=== PATIENT | female | born 1995 | race Hispanic/Latino ===

== ENCOUNTER 2017-08-20 17:38 | Emergency (ER) | payer OTHER ==
[~2017-08-20] VITALS: Ht 160 cm; Wt 68.0 kg
[2017-08-20] MEDS ORDERED: NASONEX17 GM (18:03)
[2017-08-20] MEDS ORDERED: XYZAL5 MG PO (18:03)
[2017-08-20] MEDS ORDERED: EYE DROPS ALLER15 ML OP (18:03)
== END 2017-08-20 18:15 | disposition home or self-care (01) ==
LOC: FSED 17:38
DX: H10.023 Other mucopurulent conjunctivitis, bilateral (principal)
CPT/HCPCS: 93005; 99283

== ENCOUNTER 2017-08-22 10:37 | Emergency (ER) | payer OTHER ==
[~2017-08-22 10:37] MED LIST: EYE DROPS ALLER15 ML OP; NASONEX17 GM; XYZAL5 MG PO
--- OUTSIDE RECORDS SUMMARY | 2017-08-22 10:39 | XMS REPORT | Continuity of Care Document ---
Author Author [facility] Organization [facility] Address [address] [place] [address] Phone Unavailable Care Team Providers Care Human Resource Advisor Name Role Phone NONSTAFF PCP Unavailable Insurance Providers Guarantor Carol Quiñonez Address [address] [address] Email [email or web address] Payer [facility] Policy Number [id number] Subscriber's Name QuiñonezCarol degroot Relationship 18 Self / Same As Patient Group Name UNEMPLOYED Advance Directives Directive Response Recorded Date/Time Does the patient have an advance directive? No 08/20/17 6:53pm If yes, is advance directive on file with [facility]? No 08/20/17 6:53pm If not on file with [facility] will patient provide a copy? No 08/20/17 6:53pm Do you have a Directive to Physician? No 08/20/17 6:53pm Do you have a Medical Power of [employer] Gener[employer] Inspector? No 08/20/17 6:53pm Do you have an out of hospital Do Not Resuscitate Order? No 08/20/17 6:53pm Do you have any special needs we should be aware of? No 08/20/17 6:53pm Do you have a support person here with you today? Yes 08/20/17 6:53pm Did patient receive Notice of Privacy Practices? Yes 08/20/17 6:53pm Did patient receive patient rights and responsibilities? Yes 08/20/17 6:53pm Problems No problem information available. Medications Current Home Medications Medication Dose Units Route Directions Days Qty Instructions Start Date Levocetirizine Dihydrochloride (Xyzal) 5 Mg Tablet 5 Mg Oral Daily 30 Tab 08/20/17 Mometasone Furoate (Nasonex) 17 Gm [place] 2 Sprays Nasal Daily 1 Bottle 08/20/17 Tetrahydrozoline Hcl/Zn Sulf (Eye Drops Allergy Relief) 15 Ml Drops 1-2 Drop Ophthalmic Three Times A Day as needed for Itching 1 Bottle *Use as per pkg instructions as dosing may vary 08/20/17 Social History No social history information available. Hospital Discharge Instructions No hospital discharge instruction information available. Plan of Care Discharge Date 08/20/17 6:15pm Disposition HOME, SELF-CARE Condition at Discharge Stable Instructions/Education Provided Allergic Reaction Forms Provided Work/School Excuse Prescriptions See Medication Section Referrals Md Daniel Additional Instructions/Education DISCHARGE INSTRUCTIONS for Conjunctivitis: Return to the emergency department if: You have worsening eye pain. The swelling in your eye gets worse, even after treatment. Your vision suddenly becomes worse or you cannot see at all. Contact your healthcare provider if: You develop a fever and ear pain. You have tiny bumps or spots of blood on your eye. You have questions or concerns about your condition or care. Manage your symptoms: Apply a cool compress. Wet a washcloth with cold water and place it on your eye. This will help decrease itching and irritation. Do not wear contact lenses. They can irritate your eye. Throw away the pair you are using and ask when you can wear them again. Use a new pair of lenses when your healthcare provider says it is okay. Avoid irritants. Stay away from smoke filled areas. Shield your eyes from wind and sun. Flush your eye. You may need to flush your eye with saline to help decrease your symptoms. Ask for more information on how to flush your eye. Medicines: Treatment depends on what is causing your conjunctivitis. You may be given any of the following: Allergy medicine helps decrease itchy, red, swollen eyes caused by allergies. It may be given as a pill, eye drops, or nasal spray. Antibiotics may be needed if your conjunctivitis is caused by bacteria. This medicine may be given as a pill, eye drops, or eye ointment. Take your medicine as directed. Contact your healthcare provider if you think your medicine is not helping or if you have side effects. Tell him or her if you are allergic to any medicine. Keep a list of the medicines, vitamins, and herbs you take. Include the amounts, and when and why you take them. Bring the list or the pill bottles to follow-up visits. Carry your medicine list with you in case of an emergency. Prevent the spread of conjunctivitis: Wash your hands with soap and water often. Wash your hands before and after you touch your eyes. Also wash your hands before you prepare or eat food and after you use the bathroom or change a diaper. Avoid allergens. Try to avoid the things that cause your allergies, such as pets, dust, or grass. Avoid contact with others. Do not share towels or washcloths. Try to stay away from others as much as possible. Ask when you can return to work or school. Throw away eye makeup. The bacteria that caused your conjunctivitis can stay in eye makeup. Throw away mascara and other eye makeup. Functional Status No functional status information available. Allergies, Adverse Reactions, Alerts No known allergies. Immunizations No immunization information available. Vital Signs Acute Vital Signs Vital Response Date/Time Height 5 ft 3 in 08/20/2017 5:42pm Weight 150 lb 08/20/2017 5:42pm Body Mass Index 26.6 kg/m^2 08/20/2017 5:42pm Results No relevant diagnostic test, laboratory data and/or discharge summary information available. Procedures No procedure information available. Encounters Encounter Location Arrival/Admit Date Discharge/Depart Date Attending Provider Departed Emergency Room [facility] 08/20/17 5:38pm 6:15pm MARIA L RIVERO MD
[2017-08-22] MEDS ORDERED: PENICILLIN G BENZATHINE LA 1.2 MU TBX IM STA (11:00)
[2017-08-22 11:25] VITALS: BP 112/68
== END 2017-08-22 11:27 | disposition home or self-care (01) ==
LOC: FSED 10:37
DX: J02.0 Streptococcal pharyngitis (principal)
CPT/HCPCS: 96372; 99282; J0561